=== PATIENT | male | born 1945 ===

== ENCOUNTER 2016-10-19 12:33 | Emergency (ER) | payer BC ==
[~2016-10-19] VITALS: Ht 177.8 cm; Wt 68.9 kg
--- NOTE | ~2016-10-19 | CT72 ---
[facility] A Service of [facility] RADIOLOGY TEXT RESULTS PATIENT: ANA GO LOCATION: [facility] : [birth year] UNIT #: [id number] AGE: [address]: Isak Castro MD SEX: M ORDER DR: [id number] [facility] [address] [place], [place] [address] [id number] E MR#: [id number] #: [id number] NAME: ANA GO : 1945 SEX: M STUDY DATE/TIME: 10/19/2016 12:39 UNIT: [facility] ROOM: STUDY DESCRIPTION: CT Head Wo Contrast Stroke Attending Physician: Isak Castro M.D. Ordering Physician: Isak Castro M.D. MEDICAL IMAGING REPORT This report is preliminary unless electronic signature is present EXAM Noncontrast CT head DATE 10/19/2016 HISTORY 71-year-old male with complete left side body weakness beginning at 1230 today. COMPARISON None. TECHNIQUE This CT exam was performed with one or more of the following radiation dose reduction techniques: Automatic exposure control, adjustment of mA and/or kV according to patient size, and iterative reconstruction. FINDINGS Large parenchymal hemorrhage is seen within the right frontal parietal lobe centered within the right basal ganglia. The dominant component of the spleen measures 5.0 x 4.2 cm. Subarachnoid blood is demonstrated within the anterior right ventricular body, and subarachnoid blood is also seen within the sulci of the right frontal lobe. What also extends into the anterior aspect of the right middle cranial fossa. There is approximately 4 mm, right to left midline shift. There is effacement of the right lateral ventricle, with dilation of the left lateral ventricular body. Calvarium within normal limits. Paranasal sinuses are clear. Mild periventricular and deep white matter hypodensities consistent with chronic microvascular cease. [facility] A Service [facility] RADIOLOGY TEXT RESULTS PATIENT: ANA GO LOCATION: [facility] : [birth year] UNIT #: [id number] AGE: [address]: Isak Castro MD SEX: M ORDER DR: IMPRESSION 1. Large right frontal lobe intracranial hemorrhage measuring at least 5.0 x 4.2 cm centered over the right basal ganglia extending cephalad into the wolff radiata with surrounding edema. 2. Intraventricular breakthrough of subarachnoid hemorrhage in the anterior margin of the right lateral ventricle. 3. Subarachnoid blood is seen within the right frontal lobe sulci extending into the middle cranial fossa. 4. Right lateral ventricular effacement with compensatory enlargement of the left lateral ventricle. 5. 4 mm [id number] midline shift. 6. Scattered chronic microvascular disease changes. 7. I have contacted Dr. Castro. He is already aware of this finding, and the patient is being transferred from [facility] facility at this time. Dictated by... Lisette Herrera M.D. THIS IS AN ELECTRONICALLY VERIFIED REPORT Lisette Herrera M.D. at 10/20/2016 1:11 PM MATT/rosalio TD: 10/19/2016 15:32 JOB #: [id number] MEDICAL IMAGING REPORT Page 1 of 1 COPY
--- NOTE | ~2016-10-19 | CR72 ---
[facility] A Service of [facility] RADIOLOGY TEXT RESULTS PATIENT: ANA GO LOCATION: [facility] : [birth year] UNIT #: [id number] AGE: [address]: Isak Castro MD SEX: M ORDER DR: [id number] [facility] [address] [place], [place] [address] [id number] E MR#: [id number] #: [id number] NAME: ANA GO : 1945 SEX: M STUDY DATE/TIME: 10/19/2016 13:00 UNIT: [facility] ROOM: STUDY DESCRIPTION: CR Chest Single View Portable Attending Physician: Isak Castro M.D. Ordering Physician: Isak Castro M.D. MEDICAL IMAGING REPORT This report is preliminary unless electronic signature is present EXAM AP portable chest DATE 10/19/2016 HISTORY Shortness of breath, weakness and acute mental status changes today. COMPARISON None. FINDINGS No acute airspace disease. Benign calcified granuloma in the right base. Normal heart size. No pleural effusion or pneumothorax. IMPRESSION No acute cardiopulmonary findings. Dictated by... Lisette Herrera M.D. THIS IS AN ELECTRONICALLY VERIFIED REPORT Lisette Herrera M.D. at 10/20/2016 1:11 PM [facility]/martin TD: 10/19/2016 16:26 JOB #: [id number] MEDICAL IMAGING REPORT Page 1 of 1 COPY
--- NOTE | ~2016-10-19 | EKG ---
PATIENT: ANA GO UNIT #: [id number] Ventricular Rate: 62 BPM Atrial Rate: 62 BPM P-R Interval: 156 ms QRS Duration: 92 ms Q-T Interval: 432 ms QTC Calculation(Bezet): 438 ms P [place]: 74 degrees Calculated R [place]: 76 degrees Calculated T [place]: 71 degrees Diagnosis Line: Normal sinus rhythm Diagnosis Line: Normal ECG Diagnosis Line: No previous ECGs available Diagnosis Line: Confirmed by AMBROSE DELCID MD ([id number]) on 10/21/2016 Diagnosis Line: 10:59:29 PM INTERPRETING MD: FARHANA HILLS
[2016-10-19 13:07] LABS: POC - CKMB 5.5 ng/mL (0.0-7.9); POC - TROPONIN <0.05 ng/mL (<=0.05)
[2016-10-19 13:09] LABS: BASOPHIL% 0.4 % (0-2.5); EOSINOPHIL# 0.1 X10e3 (0-0.7); EOSINOPHIL% 2.1 % (0.0-7.0); HEMATOCRIT 37.2 % (38.0-50.0); HEMOGLOBIN 12.6 gm/dL (13.0-16.0); LYMPHOCYTE# 0.9 X10e3 (1.0-3.5); LYMPHOCYTE% 25.7 % (17.0-45.0); MEAN CELL VOLUME 88.7 FL (83-96); MEAN CORPUSCULAR HEMOGLOBIN 30.2 PG (28-34); MEAN PLATELET VOLUME 9.7 FL (6.5-11.5); MONOCYTE# 0.5 X10e3 (0-1.0); MONOCYTE% 14.6 % (3.0-12.0); NEUTROPHIL# 2.1 X10e3 (1.5-7.1); NEUTROPHIL% 57.2 % (40-75); PLATELET COUNT 141 X10e3 (140-420); RED BLOOD COUNT 4.19 X10e (3.90-5.60); WHITE BLOOD COUNT 3.6 X10e3 (4.0-10.5)
[2016-10-19 13:10] LABS: DIFF IND NO
[2016-10-19 13:16] LABS: PARTIAL THROMBOPLASTIN TIME 28.5 SECONDS (23.5-31.3); PROTHROMBIN TIME (PATIENT) 10.8 SECONDS (10.0-11.7)
[2016-10-19 13:22] LABS: ALBUMIN SERUM 4.4 g/dL (3.5-5.0); BILIRUBIN, DIRECT 0.1 mg/dL (0.0-0.2); BILIRUBIN,INDIRECT 0.7 mg/dL (0.0-0.9); BILIRUBIN,TOTAL 0.8 mg/dL (0.2-2.0); BUN/CREATININE RATIO 27.33; CALCIUM SERUM 9.3 mg/dL (8.4-10.2); CREATININE SERUM 1.5 mg/dL (0.6-1.4); GLOM FILT RATE Estimated 46.8 mL/min (>60); POTASSIUM 3.6 mmol/L (3.5-5.1); PROTEIN TOTAL SERUM 6.8 g/dL (6.0-8.3)
== END 2016-10-19 13:10 | disposition hospice, home (50) ==
LOC: CED 12:33
PROVIDERS: Emergency Medicine
DX: I61.9 Nontraumatic intracerebral hemorrhage, unspecified (principal)
CPT/HCPCS: 70450; 71010; 80048; 80076; 82553; 82947; 84484; 85025; 85610; 85730; 93005; 99291; J1953